=== PATIENT | female | born 1960 | race Caucasian/White ===

== ENCOUNTER 2018-12-06 12:56 | Emergency (ER) | payer BC ==
[2018-12-06 13:08] VITALS: RESP 18
--- NOTE | 2018-12-06 13:27 | ED ---
General Adult HPI - General Chief complaint: Extremity Injury, Lower Stated complaint: Toe nail ripped off Time Seen by Provider: 12/06/18 13:17 Source: patient, family Mode of arrival: ambulatory Limitations: no limitations - History of Present Illness Initial comments: Patient is a 58-year-old female with no past medical history presents with chief complaint of an injury to her left great toe. The patient states that she stubbed her toe on a cement porch yesterday. She states the nail lifted off, it was bleeding initially but the bleeding is stopped. The patient has not had any pain bearing weight. She mainly is concerned about infection and losing her toenail. She denies any other injuries - Related Data Home Medications Medication Instructions Recorded Confirmed Ibuprofen [Advil] 600 mg PO Q8HR PRN 12/06/18 12/06/18 Levothyroxine Sodium [Synthroid] 150 mcg PO DAILY 12/06/18 12/06/18 Allergies Allergy/AdvReac Type Severity Reaction Status Date / Time No Known Allergies Allergy Verified 12/06/18 13:12 Review of Systems ROS Statement: Those systems with pertinent positive or pertinent negative responses have been documented in the HPI. ROS Other: All systems not noted in ROS Statement are negative. Musculoskeletal: Reports: arthralgia Past Medical History Past Medical History: Thyroid Disorder Additional Past Medical History / Comment(s): hypothyroid Past Surgical History: Cholecystectomy Past Psychological History: No Psychological Hx Reported Smoking Status: Never smoker Past Alcohol Use History: Occasional Past Drug Use History: None Reported General Exam Limitations: no limitations General appearance: alert, in no apparent distress Head exam: Present: atraumatic, normocephalic Eye exam: Present: normal appearance ENT exam: Present: normal exam Neck exam: Present: normal inspection Respiratory exam: Absent: respiratory distress GI/Abdominal exam: Absent: distended Rectal exam: Present: deferred Extremities exam: Present: full ROM, other (Patient has an avulsion of her left great toenail. The proximal and appears to be attached to the nailbed. Bleeding is controlled, the surrounding area does not appear infected, the patient has a small bruise at the tip of her toe. There is no pain with range of motion, she has intact DP pulses bilaterally, she is able to bear weight without pain.) Back exam: Present: normal inspection Neurological exam: Present: alert, oriented X3 Psychiatric exam: Present: normal affect, normal mood Skin exam: Present: warm, dry, intact Course Vital Signs 12/06/18 13:05 Temperature 98.1 F Pulse Rate 76 Respiratory 18 Rate Blood Pressure 143/88 O2 Sat by Pulse 97 Oximetry Medical Decision Making - Medical Decision Making Patient presents with a chief complaint of a toe injury. On initial evaluation, vitals are stable, patient is no acute distress. Patient will be evaluated with x-rays of the left toes to rule out foreign body and fracture. 2:12 PM xrays show no acute fracture or foreign body. toe nail was secured with a steri strip. patient instructed to wash with soap and water as normal, follow up with PCP in 1-2 days, return if any concerning symptoms occur. patient informed that the toe nail may fall off, and possibly may not grow back. Disposition Clinical Impression: Nail avulsion, toe Disposition: HOME SELF-CARE Condition: Good Instructions (If sedation given, give patient instructions): Nail Avulsion (ED) Is patient prescribed a controlled substance at d/c from ED?: No Referrals: Nonstaff,Physician [REFERRING] - 1-2 days
--- NOTE | 2018-12-06 14:07 | XR ---
EXAMINATION TYPE: XR toes LT DATE OF EXAM: 12/06/2018 COMPARISON: NONE HISTORY: Pain with nail falling off after injury. TECHNIQUE: 3 views left first toe are acquired. FINDINGS: Lateral view is suboptimal due to osseous overlap. There is no acute fracture in the left f irst toe. There is mild to moderate narrowing first interphalangeal joint. Mild to moderate diffuse s oft tissue swelling and subcutaneous edema is seen. IMPRESSION: No acute fracture or dislocation in the first toe left foot.
[2018-12-06 14:28] VITALS: BP 127/86; PULSE 73; TEMP 98.7
== END 2018-12-06 14:26 | disposition home or self-care (01) ==
LOC: EC 12:56
DX: S91.202A Unspecified open wound of left great toe with damage to nail, initial encounter (principal); E03.9 Hypothyroidism, unspecified; Z79.890 Hormone replacement therapy; W22.8XXA Striking against or struck by other objects, initial encounter
CPT/HCPCS: 99283